=== PATIENT | female | born 1930 | race Caucasian/White ===

== ENCOUNTER 2016-10-27 12:04 | Emergency (ER) | payer OTHER, BC, MEDICARE ==
[~2016-10-27] VITALS: Ht 152.4 cm; Wt 54.4 kg
[~2016-10-27 12:04] MED LIST: ACIDOPHILUS1 EACH PO; ALIGN4 M1 PO; AMLODIPINE BESYL5 M1 PO; ASPIRIN EC81 M1 PO; HYDRODIURIL 2525 MG PO; LIPITOR 10MG10 MG PO; LIPITOR20 M2 PO; LISINOPRIL30 MG PO; METOPROLOL SUCC25 M1 PO; PROTONIX40 M3 PO; TOPROL XL 25MG25 MG PO; VITAMIN B-121000 MC3 PO; VITAMIN D31000 UNI1 PO
--- NOTE | 2016-10-27 13:00 | ED GI/GU/ABDOMINAL COMPLAINT ---
History of Present Illness General Chief Complaint: Female Urogenital Problems Stated Complaint: VAGINAL BLEEDING Source: patient, old records Exam Limitations: no limitations Vital Signs & Intake/Output Vital Signs & Intake/Output Vital Signs Date Time Temp Pulse Resp B/P Pulse O2 O2 Flow FiO2 Ox Delivery Rate 10/27 1535 80 148/80 10/27 1534 97.8 80 18 148/80 94 Room Air Room Air 10/27 1217 98.9 79 20 185/83 97 Room Air Allergies Coded Allergies: Penicillins (UNKNOWN 05/11/16) amoxicillin (UNKNOWN 05/11/16) erythromycin base (UPSET STOMACH 05/11/16) lidocaine (UNKNOWN 05/11/16) verapamil (UNKNOWN 05/11/16) Reconcile Medications Amlodipine Besylate 5 MG TABLET 1 TAB PO DAILY BP (Reported) Aspirin (Ecotrin*) 81 MG TABLET.DR 1 TAB PO DAILY HEART/BLOOD (Reported) Atorvastatin Calcium (Lipitor) 20 MG TABLET 1 TAB PO DAILY CHOLESTEROL ( Reported) Bifidobacterium Infantis (Align) 4 MG CAPSULE 1 CAP PO DAILY PROBIOTIC ( Reported) Cholecalciferol (Vitamin D3) (Vitamin D3) 1,000 UNIT CAPSULE 1 CAP PO DAILY SUPPLEMENT (Reported) Cyanocobalamin (Vitamin B-12) 1,000 MCG TABLET 3 TAB PO DAILY SUPPLEMENT ( Reported) Lactobacillus Acidophilus (Acidophilus) 1 EACH CAPSULE 1-2 CAP PO DAILY PRN PROBIOTIC (Reported) Metoprolol Succinate 25 MG TAB 1 TAB PO DAILY BP (Reported) Pantoprazole Sodium (Protonix) 40 MG TABLET. 1 TAB PO DAILY GI (Reported) Triage Note: PT C/O VAGINAL BLEEDING SINCE MONDAY. STATES BEING TREATED WITH CHEMO FOR OVARIAN CA THAT SPREAD INTO UTERUS. STATES SHE HAD A MALORIE IN . HAS HAD 3 ROUNDS OF CHEMO AND WAS SUPPOSED TO HAVE ONE TODAY WITH DR DELGADO Triage Nurses Notes Reviewed? yes ? n Is pt currently ? 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 Patient denies any dizziness lightheadedness abdominal pain nausea vomiting no fever no chills no urinary complaints. The patient did not call her vine pruner to perform the procedure and instead came here. She was due to have chemotherapy today however when she told her oncologist Dr. Anaya about the bleeding they instructed her to go to the emergency room. She is not on any blood thinners (PERLA WAN) Past History Travel History Traveled to [place] past 21 day No Medical History Any Pertinent Medical History? see below for history Cardiovascular: hypertension, myocardial infarction Respiratory: COPD Gastrointestinal: GERD Cancer(s): OVARIAN Surgical History Surgical History: hysterectomy, PTCA WITH STENT Psychosocial History What is your primary language Ukrainian Tobacco Use: Never used ETOH Use: denies use Illicit Drug Use: denies illicit drug use Family History Hx Contributory? No (PERLA WAN) Review of Systems Review of Systems Constitutional: Reports: see HPI. All Other Systems: Reviewed and Negative Comments Review of systems: See HPI, All other systems negative. Constitutional, no chills no fever, no malaise HEENT: no sore throat no congestion, no ear pain Cardiovascular: No chest pain , no palpitation Skin, no jaundice no rashes, no change in skin Respiratory: No dyspnea no cough no sputum GI: No nausea no vomiting, no diarrhea, no bloating/constipation : No dysuria No hematuria, no frequency, no discharge Muscle skeletal: No joint pain, no joint swelling, no back pain Neurologic: No numbness no confusion, no headache Psych: No stress Heme/endocrine: No bruising no bleeding Immunology: No lymphadenopathy, (PERLA WAN) Physical Exam Physical Exam General Appearance: well developed/nourished, no apparent distress, alert, awake Gastrointestinal: normal bowel sounds, soft, non-tender, no organomegaly Comments: Well-developed well-nourished person in no acute distress HEENT: Normal EENT exam; PERRL, EOMI, HEAD is atraumatic. moist mucous membranes. Neck: Supple, normal range of motion Back: Nontender, no CVA tenderness. Full range of motion Cardiovascular: Regular rate and rhythms no murmurs rubs Respiratory:No respiratory distress. Patient speaking in full complete sentences. Breath sounds clear to auscultation bilaterally: NO W/R/R Abdomen: Soft, nontender nondistended, no appreciable organomegaly. Normal bowel sounds. No rebound/guarding, No appreciable enlargement of the abdominal aorta, No ascites. Female : There is a superficial abrasion noted to the left external labia, there is scant bleeding, there is no visualize laceration bleeding Extremity: No edema, full range of motion of extremities Neuro: Alert oriented x3, motor sensory normal, There were no obvious focal neurologic abnormalities. Skin: No appreciable rash on exposed skin, skin is warm and dry. Psych: Mood and affect is normal, memory and judgment is normal. Core Measures ACS in differential dx? No Severe Sepsis Present: No Septic Shock Present: No (PERLA WAN) Progress Differential Diagnosis: PID/cervicitis, LACERATION, MALIGNANCY, ABSCESS, THROMBOCYTOPENIA Plan of Care: Orders Procedure Date/time Status URINALYSIS 10/27 1351 Complete Add-on Test (ER Only) 10/27 1348 Active PARTIAL THROMBOPLASTIN TIME 10/27 1319 Complete PROTHROMBIN TIME 10/27 1319 Complete MISTAKE 10/27 1300 Active COMPREHENSIVE METABOLIC PANEL 10/27 1300 Complete CBC WITHOUT DIFFERENTIAL 10/27 1300 Complete Laboratory Tests 10/27/16 1419: Urine Color YEL, Urine Clarity HAZY H, Urine pH 6.5, Ur Specific Entriken 1.015, Urine Protein 30 H, Urine Ketones NEG, Urine Nitrite NEG, Urine Bilirubin NEG, Urine Urobilinogen 0.2, Ur Leukocyte Esterase NEG, Ur Microscopic SEDIMENT EXAMINED, Urine RBC 25-50 H, Urine WBC RARE, Ur Epithelial Cells FEW, Urine Hemoglobin LARGE H, Urine Glucose NEG 10/27/16 1319: Anion Gap 8, Estimated GFR 59 L, BUN/Creatinine Ratio 27.8 H, Glucose 88, Calcium 9.0, Total Bilirubin 0.6, AST 24, ALT 27, Alkaline Phosphatase 91, Total Protein 6.6, Albumin 3.6, Globulin 3.0, Albumin/Globulin Ratio 1.2, PT 11.8, INR 1.13, APTT 26, CBC w Diff NO MAN DIFF REQ, RBC 3.51 L, MCV 91.8, MCH 31.0, RDW 15.8 H, MPV 7.0 L, Gran % 64.0, Lymphocytes % 26.4, Monocytes % 8.6, Eosinophils % 0.7, Basophils % 0.3, Absolute Granulocytes 2.9, Absolute Lymphocytes 1.2, Absolute Monocytes 0.4, Absolute Eosinophils 0, Absolute Basophils 0, PUBS MCHC 33.7 Labs ordered old records. Case discussed with Dr. Aponte CAT scan ordered call was placed to the patient's vine pruner DR garcia. Orthostatics are negative 10/27/2016 3:04:03 PM spoke with the patient's vine pruner Dr. GARCIA he advised that the patient had scar tissue on exam on Monday for which the patient had silver nitrate applied and that there may be slight bruising bleeding which is common after this procedure. Discussed with him that there is no visualized laceration noted. Advised that he can see the patient tomorrow and to have the patient call his office tomorrow morning Spoke with the patient's oncologist Dr. DELGADO regarding her thrombocytopenia which she states the patient has a history of an advised he will need to hold off chemotherapy until her platelets respond he advised to have her follow up with him early next week. I spoke with the patient at length all of her lab results CAT scan findings and the discussions were had with both her vine pruner and her oncologist. She will follow-up with her vine pruner tomorrow morning, she will return anytime sooner if the bleeding redevelops persist or worsen. She will call her oncologist as well she understands the plan going forward answered all her questions GERD for discharge (VIRI SCHUMACHER,PERLA) Diagnostic Imaging: Viewed by Me: CT Scan. Discussed w/RAD: CT Scan. Radiology Impression: ATIENT: SHU MARCELO PRESENT AGE: 86 PATIENT ACCOUNT NO: [id number] : 29 LOCATION: [facility] ORDERING PHYSICIAN: PERLA SCHUMACHER SERVICE DATE: 10/27/163254 EXAM TYPE: CAT - CT ABD & PELVIS W IV CONTRAST EXAMINATION: CT ABDOMEN AND PELVIS WITH CONTRAST CLINICAL INFORMATION: Vaginal bleeding. Status post MALORIE COMPARISON: CT scan abdomen pelvis 03/04/2016 TECHNIQUE: Multidetector volumetric imaging was performed of the abdomen and pelvis after the IV administration of 93 mL of Optiray 320 intravenous contrast. Sagittal and coronal reformatted images were obtained on the technologist's workstation. DLP: 240.08 mGy-cm. FINDINGS: LUNG BASES: Linear scarring/subsegmental atelectasis at both lung bases. No infiltrate or pleural effusion. LIVER, GALLBLADDER, AND BILIARY TREE: 1.5 cm cyst in mid left lobe of liver. Right lobe liver measures 17.8 cm superior inferior. The liver is normal in size, shape, and attenuation. No focal hepatic lesion or biliary ductal dilatation is present. The gallbladder is unremarkable with no evidence of radiopaque gallstones, gallbladder wall thickening, or obvious pericholecystic inflammatory changes. PANCREAS: There is atrophy of the pancreas. No peripancreatic inflammation or mass. SPLEEN: Unremarkable. ADRENAL GLANDS: Unremarkable. KIDNEYS AND URETERS: 1.3 cm cortical cyst at the upper pole of the left kidney. No renal or ureteral calculus. No hydronephrosis. BLADDER: Obscured by streak artifact from bilateral hip replacements GASTROINTESTINAL TRACT: No acute change of the bowel. Mild diverticulosis of left colon but no diverticulitis. No bowel obstruction. No bowel wall thickening or edema moderate volume of stool in the colon. The appendix is normal. Small bowel loops are unremarkable. Small hiatal hernia. ABDOMINAL WALL: Small fat-containing umbilical hernia LYMPH NODES: Normal. VASCULAR: Atherosclerotic vascular wall calcifications of aorta without aneurysm. PELVIC VISCERA: Pelvis obscured by streak artifact from bilateral hip replacement. Status post hysterectomy. OSSEOUS STRUCTURES: Status post bilateral total hip replacement. Degenerative arthrosis at the facet joints at the lower lumbar spine. Bridging and nonbridging endplate spurs of the lower thoracic and lumbar vertebrae. Levoscoliosis of lumbar spine at thoracolumbar junction. IMPRESSION: No acute abnormality of the abdomen or pelvis. DICTATED BY: AMERICA STUART MD DATE/TIME DICTATED:10/27/161445 SOCIAL SERVICE MANAGER:JANEL DATE/TIME TRANSCRIBED:1445 CONFIDENTIAL, DO NOT COPY WITHOUT APPROPRIATE AUTHORIZATION. < Electronically signed in Other Vendor System> SIGNED BY: AMERICA STUART MD [id number] Initial ED EKG: none (PERLA WAN) Departure Departure Time of Disposition: 1506 Disposition: HOME OR SELF CARE Condition: Stable Clinical Impression Primary Impression: Vaginal bleeding Secondary Impressions: Thrombocytopenia Referrals: JAMARI HASSAN MD (PCP/Family) Additional Instructions: Follow-up with her vine pruner at [place] tomorrow morning as they would like to see you tomorrow. follow up with your oncologist dr erwin next week to reschedule your chemotherapy given your low platelets today. return at anytime sooner with any concerns. Departure Forms: Customer Survey General Discharge Information (VIRI SCHUMACHER,PERLA) PA/C PROGRAMMER Co-Sign Statement Statement: ED Attending supervision documentation- [X] I saw and evaluated the patient. I have also reviewed all the pertinent lab results and diagnostic results. I agree with the findings and the plan of care as documented in the PA's/C PROGRAMMER's documentation. [X] I have reviewed the ED Record and agree with the PA's/C PROGRAMMER's documentation. [] Additions or exceptions (if any) to the PAs/C PROGRAMMER's note and plan are summarized below: [] (LEAH ELAM,THOMPSON Lewis)
[2016-10-27 13:29] LABS: ABSOLUTE BASOPHIL COUNT 0 /CUMM (0.0-0.2); ABSOLUTE EOSINOPHIL COUNT 0 /CUMM (0.0-0.7); ABSOLUTE GRANULOCYTE CT 2.9 /CUMM (1.4-6.5); ABSOLUTE LYMPH COUNT 1.2 /CUMM (1.2-3.4); ABSOLUTE MONOCYTE COUNT 0.4 /CUMM (0.10-0.60); MEAN CORPUSCULAR VOLUME 91.8 FL (81.0-99.0)
[2016-10-27 13:35] LABS: BASOPHIL % 0.3 % (0.0-2.0); EOSINOPHIL % 0.7 % (0-5); HEMATOCRIT 32.2 % (37-47); MEAN CORPUSCULAR HGB CONC 33.7 G/DL (33.0-37.0); RBC DISTRIBUTION WIDTH 15.8 % (11.5-14.5); RED BLOOD CELL CT 3.51 /CUMM (4.20-5.40); WHITE BLOOD CELL COUNT 4.5 /CUMM (4.8-10.8)
[2016-10-27 13:46] LABS: PLATELET COUNT 69 /CUMM (130-400)
[2016-10-27 14:18] LABS: PT 11.8 SEC (9.4-12.5); PTT 26 SEC (25-37)
--- NOTE | 2016-10-27 14:59 | CT SCAN REPORT ---
EXAMINATION: CT ABDOMEN AND PELVIS WITH CONTRAST CLINICAL INFORMATION: Vaginal bleeding. Status post MALORIE COMPARISON: CT scan abdomen pelvis 03/04/2016 TECHNIQUE: Multidetector volumetric imaging was performed of the abdomen and pelvis after the IV administration of 93 mL of Optiray 320 intravenous contrast. Sagittal and coronal reformatted images were obtained on the technologist's workstation. DLP: 240.08 mGy-cm. FINDINGS: LUNG BASES: Linear scarring/subsegmental atelectasis at both lung bases. No infiltrate or pleural effusion. LIVER, GALLBLADDER, AND BILIARY TREE: 1.5 cm cyst in mid left lobe of liver. Right lobe liver measures 17.8 cm superior inferior. The liver is normal in size, shape, and attenuation. No focal hepatic lesion or biliary ductal dilatation is present. The gallbladder is unremarkable with no evidence of radiopaque gallstones, gallbladder wall thickening, or obvious pericholecystic inflammatory changes. PANCREAS: There is atrophy of the pancreas. No peripancreatic inflammation or mass. SPLEEN: Unremarkable. ADRENAL GLANDS: Unremarkable. KIDNEYS AND URETERS: 1.3 cm cortical cyst at the upper pole of the left kidney. No renal or ureteral calculus. No hydronephrosis. BLADDER: Obscured by streak artifact from bilateral hip replacements GASTROINTESTINAL TRACT: No acute change of the bowel. Mild diverticulosis of left colon but no diverticulitis. No bowel obstruction. No bowel wall thickening or edema moderate volume of stool in the colon. The appendix is normal. Small bowel loops are unremarkable. Small hiatal hernia. ABDOMINAL WALL: Small fat-containing umbilical hernia LYMPH NODES: Normal. VASCULAR: Atherosclerotic vascular wall calcifications of aorta without aneurysm. PELVIC VISCERA: Pelvis obscured by streak artifact from bilateral hip replacement. Status post hysterectomy. OSSEOUS STRUCTURES: Status post bilateral total hip replacement. Degenerative arthrosis at the facet joints at the lower lumbar spine. Bridging and nonbridging endplate spurs of the lower thoracic and lumbar vertebrae. Levoscoliosis of lumbar spine at thoracolumbar junction. IMPRESSION: No acute abnormality of the abdomen or pelvis.
[2016-10-27 15:35] VITALS: BP 148/80
== END 2016-10-27 15:52 ==
LOC: ERH 12:04
PROVIDERS: Physician Assistant Medical
DX: N93.9 Abnormal uterine and vaginal bleeding, unspecified (principal); D69.6 Thrombocytopenia, unspecified
CPT/HCPCS: 74177; 81001